=== PATIENT | female | born 1970 | race African-American/Black ===

== ENCOUNTER 2018-01-12 11:39 | Observation (INO) ==
[2018-01-12] MEDS ORDERED: ASPIRIN 325 MG TABLET PO STA (12:06)
[2018-01-12 12:20] LABS: Basophils % 0.1 % (0.0-0.8); Eosinophils % 0.1 % (0.00-10.9); Hematocrit 40.4 VOL% (35.7-47.0); Hemoglobin 12.6 GM/DL (12.0-16.0); Immature Granulocytes % 0.6 %; Immature Granulocytes Absolute 0.05 #; Lymphocytes # 2.5 10*3/uL (1.4-4.0); Lymphocytes % 28.3 % (21.3-54.2); Mean Corpuscular HGB Conc 31.2 GM/DL (32-36); Mean Corpuscular Hemoglobin 26 PG (27-34); Mean Corpuscular Volume 82.4 FL (87-102); Mean Platelet Volume 10.3 FL (9.6-12.0); Monocytes # 0.5 10*3/uL (0.11-0.8); Monocytes % 5.9 % (1.7-12.7); Neutrophils # 5.8 10*3/uL (1.4-7.4); Platelet Count 277 T/CUMM (130-400); Red Cell Distribution Width 13.8 % (9.3-17.3); White Blood Count 8.9 T/CUMM (4-12)
[2018-01-12 12:30] LABS: INR 0.9; PT Patient Result 9.7 SECS; Partial Thromboplastin Time 29.6 SECS (0-40)
[2018-01-12 12:35] LABS: Albumin 3.3 G/DL (3.4-5.0); Bilirubin,Total 0.4 MG/DL (0.2-1.0); Calcium 8.8 MG/DL (8.5-10.1); Osmolality,Calculated 289.5 MOS/KG (273-304); Potassium 3.8 MMOL/L (3.5-5.1); Total Protein 6.7 G/DL (6.4-8.3)
[2018-01-12 12:36] LABS: Barbiturates Screen,Urine Negative (Negative); Benzodiazepines Screen,Urine Negative (Negative); Cannabinoid Screen,Urine Negative (Negative); Opiate Screen,Urine Positive (Negative); Phencyclidine Screen,Urine Negative (Negative)
[2018-01-12 12:40] LABS: Apearance,Urine Slightly Hazy (Clear); Bilirubin,Urine Negative (Negative); Blood, Urine Negative (Negative); Glucose,Urine (UA) >=500 mg/dL (Negative); Ketones,Urine Negative (Negative); Mucus,Urine Occasional /LPF (Occasional); Nitrite,Urine Positive (Negative); Protein,Urine Negative; RBC,Urine 10 /HPF (0-4); Squamous Epithelial Cell,Urine Occasional /HPF (0-10); Urine Color Yellow (Yellow); Urine Specific Gravity 1.025 (1.001-1.035); WBC,Urine 35 /HPF (0-6)
[2018-01-12] MEDS ORDERED: cloNIDine 0.1 MG TABLET PO STA (13:30)
[2018-01-12] MEDS ORDERED: cloNIDine 0.1 MG TABLET ONE ×2 (13:41→13:44)
[2018-01-12] MEDS ORDERED: NITROGLYCERIN SL 0.4 MG TABLET SL STA (15:44)
[2018-01-12] MEDS ORDERED: cefTRIAXone 1,000 MG in SODIUM CHLORIDE 0.9% 100 ML IV STA (15:56)
[2018-01-12] MEDS ORDERED: MAGNESIUM SULF RIDER 4 GM in PREMIX 1 EACH IV PRN (16:03)
[2018-01-12] MEDS ORDERED: ONDANSETRON 4 MG/2 ML VIAL IV PRN (16:03)
[2018-01-12] MEDS ORDERED: MAGNESIUM HYDROXIDE SUSP 30 ML UDCUP PO PRN (16:03)
[2018-01-12] MEDS ORDERED: MORPHINE 4 MG/1 ML VIAL IV PRN (16:03)
[2018-01-12] MEDS ORDERED: MAGNESIUM SULF RIDER 2 GM in PREMIX 1 EACH IV PRN (16:03)
[2018-01-12] MEDS ORDERED: ALUM/MAG/SIMETH/LIDO VISC 1:1 30 ML BOTTLE PO PRN (16:03)
[2018-01-12] MEDS ORDERED: ACETAMINOPHEN 325 MG TABLET PO PRN (16:03)
[2018-01-12] MEDS ORDERED: POTASSIUM CHLORIDE 20 MEQ TABLET PO PRN (16:03)
[2018-01-12] MEDS ORDERED: INSULIN REGULAR 100 UNIT/ML SUBCUT ONE (16:03)
[2018-01-12] MEDS ORDERED: BISACODYL 5 MG TABLET PO PRN (16:03)
[2018-01-12 16:28] LABS: Troponin I < 0.015 NG/ML (0.00-0.045)
[2018-01-12 16:37] LABS: VLDL CHOLESTEROL 12.8 MG/DL
[2018-01-12] MEDS ORDERED: DEXTROSE 50% 25 GM/50 ML VIAL IV PRN (16:51)
[2018-01-12] MEDS ORDERED: GLUCAGON 1 MG VIAL IM PRN (16:51)
[2018-01-12] MEDS ORDERED: hydrALAZINE 20 MG/1 ML VIAL IV PRN (16:52)
[2018-01-12 17:20] LABS: Hepatitis A Ab IgM Quant 0.11 Index; Hepatitis A Ab IgM Result Negative (Negative); Hepatitis B Core IgM Quant < 0.05 Index; Hepatitis B Core IgM Result Negative (Negative); Hepatitis B Surface Ag Quant < 0.10 Index; Hepatitis B Surface Ag Result Negative (Negative); Hepatitis C Virus Ab Quant 0.13 Index; Hepatitis C Virus Ab Result Negative (Negative)
[2018-01-12] MEDS: LEVOFLOXACIN INJ 500 MG in PREMIX 1 EACH IV SCH (18:42)
[2018-01-12] MEDS: INSULIN REGULAR 100 UNIT/ML SUBCUT SCH (20:25)
[2018-01-12] MEDS: ATORVASTATIN 10 MG TABLET PO SCH (20:26)
[2018-01-12] MEDS ORDERED: INSULIN GLARGINE 100 UNIT/ML SUBCUT SCH (21:00)
[2018-01-12] MEDS ORDERED: INSULIN DETEMIR 100 UNIT/ML SUBCUT SCH (21:00)
[2018-01-13 04:12] LABS: Basophils % 0.1 % (0.0-0.8); Eosinophils % 0.1 % (0.00-10.9); Hematocrit 37.4 VOL% (35.7-47.0); Hemoglobin 11.9 GM/DL (12.0-16.0); Immature Granulocytes % 0.9 %; Immature Granulocytes Absolute 0.07 #; Lymphocytes # 2.5 10*3/uL (1.4-4.0); Lymphocytes % 30.2 % (21.3-54.2); Mean Corpuscular HGB Conc 31.8 GM/DL (32-36); Mean Corpuscular Hemoglobin 26 PG (27-34); Mean Corpuscular Volume 82.2 FL (87-102); Mean Platelet Volume 10.1 FL (9.6-12.0); Monocytes # 0.5 10*3/uL (0.11-0.8); Monocytes % 5.5 % (1.7-12.7); Neutrophils # 5.1 10*3/uL (1.4-7.4); Neutrophils % 63.2 % (38.7-73.9); Platelet Count 242 T/CUMM (130-400); Red Blood Count 4.55 MC/CUMM (3.8-5.5); White Blood Count 8.1 T/CUMM (4-12)
[2018-01-13 04:39] LABS: Alanine Aminotransferase 161 U/L (13-56); Albumin 2.6 G/DL (3.4-5.0); Alkaline Phosphatase 230 U/L (45-117); Aspartate Amino Transferase 169 U/L (0-37); Bilirubin,Total < 0.39 MG/DL (0.2-1.0); Blood Urea Nitrogen 9 MG/DL (7-18); Calcium 8.2 MG/DL (8.5-10.1); Glucose 311 MG/DL (74-106); Osmolality,Calculated 287.5 MOS/KG (273-304); Potassium 3.4 MMOL/L (3.5-5.1); Sodium 139 MMOL/L (136-145); Total Protein 6.1 G/DL (6.4-8.3)
[2018-01-13 04:52] LABS: Albumin 2.7 G/DL (3.4-5.0); Bilirubin,Direct 0.11 MG/DL (0.0-0.20); Bilirubin,Indirect 0.6 MG/DL (0.0-1.0); Bilirubin,Total 0.7 MG/DL (0.2-1.0); Total Protein 6.1 G/DL (6.4-8.3)
[2018-01-13] MEDS ORDERED: INSULIN NPH 100 UNIT/ML SUBCUT SCH (07:30)
[2018-01-13] MEDS ORDERED: POTASSIUM CHLORIDE 20 MEQ TABLET PO ONE (09:24)
[2018-01-13] MEDS: ASPIRIN EC 81 MG TABLET PO SCH (10:00)
[2018-01-13] MEDS: PANTOPRAZOLE 40 MG TABLET PO SCH (10:00)
[2018-01-13] MEDS: INSULIN GLARGINE 100 UNIT/ML SUBCUT SCH ×2 (10:01→21:05)
[2018-01-13] MEDS: INSULIN REGULAR 100 UNIT/ML SUBCUT SCH ×4 (10:01→21:05)
[2018-01-13] MEDS: KETOROLAC 30 MG/1 ML VIAL IV SCH ×3 (11:33→22:30)
[2018-01-13] MEDS: INSULIN LISPRO 100 UNIT/ML SUBCUT SCH ×3 (12:43→21:04)
[2018-01-13] MEDS: LEVOFLOXACIN INJ 500 MG in PREMIX 1 EACH IV SCH (17:52)
[2018-01-13] MEDS: ATORVASTATIN 10 MG TABLET PO SCH (21:05)
[2018-01-14] MEDS: KETOROLAC 30 MG/1 ML VIAL IV SCH (04:53)
[2018-01-14] MEDS: INSULIN LISPRO 100 UNIT/ML SUBCUT SCH ×4 (08:23→22:17)
[2018-01-14] MEDS: INSULIN REGULAR 100 UNIT/ML SUBCUT SCH ×4 (08:24→22:18)
[2018-01-14] MEDS: PANTOPRAZOLE 40 MG TABLET PO SCH (09:44)
[2018-01-14] MEDS: LISINOPRIL 10 MG TABLET PO SCH (09:44)
[2018-01-14] MEDS: POTASSIUM CHLORIDE 20 MEQ TABLET PO SCH (09:44)
[2018-01-14] MEDS: ASPIRIN EC 81 MG TABLET PO SCH (09:44)
[2018-01-14] MEDS: INSULIN GLARGINE 100 UNIT/ML SUBCUT SCH (11:28)
[2018-01-14] MEDS: metFORMIN 500 MG TABLET PO SCH (17:09)
[2018-01-14] MEDS: LEVOFLOXACIN INJ 500 MG in PREMIX 1 EACH IV SCH (17:09)
[2018-01-14] MEDS: INSULIN ASPART PROTAMINE/ASPART 70/30 100 UNIT/ML SUBCUT SCH (22:17)
[2018-01-15 04:52] LABS: Basophils % 0.1 % (0.0-0.8); Eosinophils % 0.1 % (0.00-10.9); Hematocrit 37.2 VOL% (35.7-47.0); Hemoglobin 11.6 GM/DL (12.0-16.0); Immature Granulocytes % 0.9 %; Immature Granulocytes Absolute 0.09 #; Lymphocytes # 2.4 10*3/uL (1.4-4.0); Mean Corpuscular HGB Conc 31.2 GM/DL (32-36); Mean Corpuscular Hemoglobin 26 PG (27-34); Mean Corpuscular Volume 83.6 FL (87-102); Mean Platelet Volume 9.7 FL (9.6-12.0); Monocytes # 0.6 10*3/uL (0.11-0.8); Monocytes % 5.5 % (1.7-12.7); Neutrophils % 69.4 % (38.7-73.9); Platelet Count 252 T/CUMM (130-400); Red Blood Count 4.45 MC/CUMM (3.8-5.5); Red Cell Distribution Width 14.2 % (9.3-17.3); White Blood Count 10.1 T/CUMM (4-12)
[2018-01-15 05:23] LABS: Calcium 8.7 MG/DL (8.5-10.1); Osmolality,Calculated 288.8 MOS/KG (273-304); Potassium 3.9 MMOL/L (3.5-5.1)
[2018-01-15 05:26] LABS: Alanine Aminotransferase 85 U/L (13-56); Albumin 2.6 G/DL (3.4-5.0); Alkaline Phosphatase 200 U/L (45-117); Aspartate Amino Transferase 33 U/L (0-37); Bilirubin,Direct < 0.100 MG/DL (0.0-0.20); Bilirubin,Indirect 0.3 MG/DL (0.0-1.0); Bilirubin,Total < 0.39 MG/DL (0.2-1.0); Total Protein 5.9 G/DL (6.4-8.3)
[2018-01-15] MEDS: INSULIN LISPRO 100 UNIT/ML SUBCUT SCH ×4 (08:07→21:11)
[2018-01-15] MEDS: INSULIN REGULAR 100 UNIT/ML SUBCUT SCH ×4 (08:07→21:12)
[2018-01-15] MEDS: metFORMIN 500 MG TABLET PO SCH ×3 (08:08→16:27)
[2018-01-15] MEDS ORDERED: DEXTROSE 50% 25 GM/50 ML VIAL IV PRN (08:52)
[2018-01-15] MEDS ORDERED: GLUCAGON 1 MG VIAL IM PRN (08:52)
[2018-01-15] MEDS: ASPIRIN EC 81 MG TABLET PO SCH (09:08)
[2018-01-15] MEDS: TRIAMTERENE/HCTZ 37.5-25 MG TABLET PO SCH (09:08)
[2018-01-15] MEDS: PANTOPRAZOLE 40 MG TABLET PO SCH (09:08)
[2018-01-15] MEDS: LISINOPRIL 10 MG TABLET PO SCH (09:08)
[2018-01-15] MEDS: POTASSIUM CHLORIDE 20 MEQ TABLET PO SCH (09:08)
[2018-01-15] MEDS: INSULIN ASPART PROTAMINE/ASPART 70/30 100 UNIT/ML SUBCUT SCH ×2 (09:12→21:12)
[2018-01-15] MEDS: LEVOFLOXACIN INJ 500 MG in PREMIX 1 EACH IV SCH (17:26)
[2018-01-16 05:35] LABS: Basophils % 0.1 % (0.0-0.8); Eosinophils % 0.1 % (0.00-10.9); Hematocrit 39.1 VOL% (35.7-47.0); Hemoglobin 12.1 GM/DL (12.0-16.0); Immature Granulocytes % 0.8 %; Immature Granulocytes Absolute 0.09 #; Lymphocytes # 2.8 10*3/uL (1.4-4.0); Lymphocytes % 25.7 % (21.3-54.2); Mean Corpuscular HGB Conc 30.9 GM/DL (32-36); Mean Corpuscular Hemoglobin 26 PG (27-34); Mean Corpuscular Volume 83.5 FL (87-102); Mean Platelet Volume 10.5 FL (9.6-12.0); Monocytes # 0.6 10*3/uL (0.11-0.8); Monocytes % 5.6 % (1.7-12.7); Neutrophils # 7.3 10*3/uL (1.4-7.4); Neutrophils % 67.7 % (38.7-73.9); Platelet Count 274 T/CUMM (130-400); Red Blood Count 4.68 MC/CUMM (3.8-5.5); Red Cell Distribution Width 14.3 % (9.3-17.3); White Blood Count 10.7 T/CUMM (4-12)
[2018-01-16 06:07] LABS: Alanine Aminotransferase 64 U/L (13-56); Albumin 2.8 G/DL (3.4-5.0); Alkaline Phosphatase 183 U/L (45-117); Aspartate Amino Transferase 17 U/L (0-37); Bilirubin,Direct < 0.100 MG/DL (0.0-0.20); Bilirubin,Indirect 0.3 MG/DL (0.0-1.0); Bilirubin,Total < 0.39 MG/DL (0.2-1.0); Blood Urea Nitrogen 17 MG/DL (7-18); Calcium 9.1 MG/DL (8.5-10.1); Glucose 192 MG/DL (74-106); Osmolality,Calculated 281.7 MOS/KG (273-304); Potassium 4.5 MMOL/L (3.5-5.1); Sodium 138 MMOL/L (136-145); Total Protein 6.3 G/DL (6.4-8.3)
[2018-01-16] MEDS: INSULIN LISPRO 100 UNIT/ML SUBCUT SCH ×2 (09:43→12:42)
[2018-01-16] MEDS: POTASSIUM CHLORIDE 20 MEQ TABLET PO SCH (09:43)
[2018-01-16] MEDS: metFORMIN 500 MG TABLET PO SCH (09:43)
[2018-01-16] MEDS: LISINOPRIL 10 MG TABLET PO SCH (09:43)
[2018-01-16] MEDS: PANTOPRAZOLE 40 MG TABLET PO SCH (09:43)
[2018-01-16] MEDS: TRIAMTERENE/HCTZ 37.5-25 MG TABLET PO SCH (09:44)
[2018-01-16] MEDS: ASPIRIN EC 81 MG TABLET PO SCH (09:44)
[2018-01-16] MEDS: INSULIN REGULAR 100 UNIT/ML SUBCUT SCH ×2 (09:44→12:42)
[2018-01-16] MEDS: INSULIN ASPART PROTAMINE/ASPART 70/30 100 UNIT/ML SUBCUT SCH (09:49)
[2018-01-16] MEDS: LEVOFLOXACIN INJ 500 MG in PREMIX 1 EACH IV SCH (10:19)
[2018-01-16 12:21] VITALS: BP 164/100
[2018-01-16] MEDS ORDERED: cloNIDine 0.1 MG TABLET PO ONE ×2 (12:23→13:37)
[2018-01-17 15:20] LABS: Smooth Muscle Antibody Negative (Negative)
== END 2018-01-16 15:23 | disposition home or self-care (01) ==
LOC: EDUNIT# → EDSEX → EDBD → N.ED 11:39 → N.EDINP 11:39 → SUATTDRO 16:03 → N.EDINP 17:54 → N.TELES 17:56
PROVIDERS: ADMIT Internal Medicine

== ENCOUNTER 2018-11-07 20:53 | Observation (INO) ==
[2018-11-07] MEDS ORDERED: ONDANSETRON 4 MG/2 ML VIAL IV STA ×2 (21:10→23:13)
[2018-11-07] MEDS ORDERED: SODIUM CHLORIDE 0.9% 1,000 ML IV STA (21:10)
[2018-11-07 21:28] LABS: Basophils # 0.1 10*3/uL (0.0-0.2); Basophils % 0.3 % (0.0-0.8); Hematocrit 45.4 VOL% (35.7-47.0); Hemoglobin 14.3 GM/DL (12.0-16.0); Immature Granulocytes % 0.9 %; Immature Granulocytes Absolute 0.16 #; Lymphocytes # 1.2 10*3/uL (1.4-4.0); Lymphocytes % 6.4 % (21.3-54.2); Mean Corpuscular HGB Conc 31.5 GM/DL (32-36); Mean Corpuscular Volume 82.8 FL (87-102); Mean Platelet Volume 9.5 FL (9.6-12.0); Monocytes % 1.1 % (1.7-12.7); Neutrophils % 91.3 % (38.7-73.9); Platelet Count 340 T/CUMM (130-400); Red Blood Count 5.48 MC/CUMM (3.8-5.5); Red Cell Distribution Width 13.2 % (9.3-17.3); White Blood Count 18.6 T/CUMM (4-12)
[2018-11-07 21:50] LABS: Eosinophils 1 % (0-10); Lymphocytes 9 % (20-55); Platelet Estimate Normal; Segmented Neutrophils 90 % (50-85); Total Cells Counted 100
[2018-11-07] MEDS ORDERED: MORPHINE 4 MG/1 ML VIAL IV STA (21:52)
[2018-11-07 21:59] LABS: Alanine Aminotransferase 251 U/L (13-56); Albumin 3.8 G/DL (3.4-5.0); Alkaline Phosphatase 424 U/L (45-117); Amylase 52 U/L (25-115); Aspartate Amino Transferase 182 U/L (0-37); Blood Urea Nitrogen 19 MG/DL (7-18); Calcium 9.7 MG/DL (8.5-10.1); Glucose 302 MG/DL (74-106); Osmolality,Calculated 285.8 MOS/KG (273-304); Total Protein 8.5 G/DL (6.4-8.3)
[2018-11-07] MEDS ORDERED: hydrALAZINE 20 MG/1 ML VIAL IV STA (23:31)
[2018-11-07 23:35] LABS: Apearance,Urine Slightly Hazy (Clear); Bilirubin,Urine Negative (Negative); Blood, Urine Negative (Negative); Glucose,Urine (UA) >=500 mg/dL (Negative); Ketones,Urine 20 mg/dL (Negative); Nitrite,Urine Negative (Negative); Protein,Urine Negative; RBC,Urine 19 /HPF (0-4); Renal Epithelial Cells,Urine Occasional /HPF (<1); Squamous Epithelial Cell,Urine Few /HPF (0-10); Urine Color Yellow (Yellow); Urine Specific Gravity 1.056 (1.001-1.035); Urine Urobilinogen < 2.0 EU/DL (0.2-1.0); WBC,Urine 10 /HPF (0-6)
[2018-11-07] MEDS ORDERED: cefTRIAXone 1,000 MG in SODIUM CHLORIDE 0.9% 100 ML IV STA (23:42)
[2018-11-08] MEDS ORDERED: PROMETHAZINE INJ 12.5 MG in SODIUM CHLORIDE 0.9% 50 ML IV STA (00:04)
[2018-11-08] MEDS ORDERED: HYDROmorphone 2 MG/1 ML VIAL IV STA (00:04)
[2018-11-08] MEDS ORDERED: PROMETHAZINE 25 MG/1 ML VIAL ONE (00:07)
[2018-11-08] MEDS ORDERED: ACETAMINOPHEN 325 MG TABLET PO PRN (00:51)
[2018-11-08 02:21] LABS: Alanine Aminotransferase 250 U/L (13-56); Albumin 3.8 G/DL (3.4-5.0); Alkaline Phosphatase 415 U/L (45-117); Aspartate Amino Transferase 196 U/L (0-37); Bilirubin,Direct < 0.100 MG/DL (0.0-0.20); Bilirubin,Indirect 0.4 MG/DL (0.0-1.0); Total Protein 9.3 G/DL (6.4-8.3)
[2018-11-08 02:24] LABS: Risk Ratio 4.02; VLDL CHOLESTEROL 21.8 MG/DL
[2018-11-08] MEDS: SODIUM CHLORIDE 0.9% 1,000 ML IV SCH ×3 (02:35→23:01)
[2018-11-08] MEDS ORDERED: GLUCAGON 1 MG VIAL IM PRN (03:22)
[2018-11-08] MEDS ORDERED: DEXTROSE 50% 25 GM/50 ML VIAL IV PRN (03:22)
[2018-11-08] MEDS: INSULIN REGULAR 100 UNIT/ML SUBCUT SCH ×3 (05:56→17:32)
[2018-11-08] MEDS: ONDANSETRON 4 MG/2 ML VIAL IV PRN ×4 (05:57→19:30)
[2018-11-08] MEDS: MORPHINE 4 MG/1 ML VIAL IV PRN ×2 (05:57→10:00)
[2018-11-08 07:21] LABS: Basophils % 0.2 % (0.0-0.8); Hematocrit 43.1 VOL% (35.7-47.0); Hemoglobin 13.7 GM/DL (12.0-16.0); Immature Granulocytes % 1.6 %; Immature Granulocytes Absolute 0.28 #; Lymphocytes # 1.3 10*3/uL (1.4-4.0); Lymphocytes % 7.5 % (21.3-54.2); Mean Corpuscular HGB Conc 31.8 GM/DL (32-36); Mean Corpuscular Volume 83.4 FL (87-102); Mean Platelet Volume 10.2 FL (9.6-12.0); Monocytes % 1.7 % (1.7-12.7); Platelet Count 348 T/CUMM (130-400); Red Blood Count 5.17 MC/CUMM (3.8-5.5); Red Cell Distribution Width 13.6 % (9.3-17.3); White Blood Count 17.2 T/CUMM (4-12)
[2018-11-08] MEDS: INSULIN GLARGINE 100 UNIT/ML SUBCUT SCH (08:07)
[2018-11-08] MEDS: LEVOFLOXACIN INJ 500 MG in PREMIX 1 EACH IV SCH (08:07)
[2018-11-08] MEDS: PANTOPRAZOLE 40 MG TABLET PO SCH (08:11)
[2018-11-08 08:50] LABS: Hepatitis B Core IgM Quant 0.05 Index; Hepatitis B Surface Ag Quant < 0.10 Index; Hepatitis B Surface Ag Result Negative (Negative); Hepatitis C Virus Ab Quant 0.02 Index; Hepatitis C Virus Ab Result Negative (Negative)
[2018-11-08 09:06] LABS: Albumin 3.2 G/DL (3.4-5.0); Bilirubin,Total 0.4 MG/DL (0.2-1.0); Calcium 9.1 MG/DL (8.5-10.1); Osmolality,Calculated 283.8 MOS/KG (273-304); Total Protein 8.1 G/DL (6.4-8.3)
[2018-11-08] MEDS ORDERED: cefTRIAXone 1,000 MG in SYRINGE 1 EACH IV SCH (12:00)
[2018-11-08] MEDS ORDERED: ENOXAPARIN 40 MG/0.4 ML SYRINGE SUBCUT SCH (15:00)
[2018-11-08] MEDS: IBUPROFEN 800 MG TABLET PO SCH ×2 (15:11→21:03)
[2018-11-08 15:47] LABS: Alanine Aminotransferase 149 U/L (13-56); Albumin 2.9 G/DL (3.4-5.0); Alkaline Phosphatase 318 U/L (45-117); Aspartate Amino Transferase 54 U/L (0-37); Bilirubin,Total < 0.39 MG/DL (0.2-1.0); Blood Urea Nitrogen 18 MG/DL (7-18); Glucose 203 MG/DL (74-106); Total Protein 7.8 G/DL (6.4-8.3)
[2018-11-08] MEDS ORDERED: PROMETHAZINE 25 MG/1 ML VIAL IM PRN (21:25)
[2018-11-09] MEDS: INSULIN REGULAR 100 UNIT/ML SUBCUT SCH ×2 (00:36→06:18)
[2018-11-09] MEDS: SODIUM CHLORIDE 0.9% 1,000 ML IV SCH ×2 (02:06→06:20)
[2018-11-09 05:35] LABS: Basophils % 0.3 % (0.0-0.8); Hematocrit 42.7 VOL% (35.7-47.0); Hemoglobin 13.5 GM/DL (12.0-16.0); Immature Granulocytes % 1.8 %; Immature Granulocytes Absolute 0.27 #; Lymphocytes % 13.1 % (21.3-54.2); Mean Corpuscular HGB Conc 31.6 GM/DL (32-36); Mean Corpuscular Volume 84.1 FL (87-102); Mean Platelet Volume 9.9 FL (9.6-12.0); Monocytes % 3.3 % (1.7-12.7); Neutrophils % 81.5 % (38.7-73.9); Platelet Count 319 T/CUMM (130-400); Red Blood Count 5.08 MC/CUMM (3.8-5.5); Red Cell Distribution Width 13.4 % (9.3-17.3)
[2018-11-09 06:12] LABS: Bilirubin,Total 0.6 MG/DL (0.2-1.0); Calcium 8.7 MG/DL (8.5-10.1); Osmolality,Calculated 280.7 MOS/KG (273-304); Total Protein 7.4 G/DL (6.4-8.3)
[2018-11-09 07:31] VITALS: BP 159/91
[2018-11-09] MEDS: INSULIN GLARGINE 100 UNIT/ML SUBCUT SCH (08:09)
[2018-11-09] MEDS: LEVOFLOXACIN INJ 500 MG in PREMIX 1 EACH IV SCH (08:09)
[2018-11-09] MEDS: PANTOPRAZOLE 40 MG TABLET PO SCH (08:10)
[2018-11-09] MEDS: IBUPROFEN 800 MG TABLET PO SCH (08:10)
[2018-11-09] MEDS: ONDANSETRON 4 MG/2 ML VIAL IV PRN (08:16)
== END 2018-11-09 11:17 | disposition home or self-care (01) ==
LOC: EDUNIT# → EDBD → N.ED 20:53 → N.EDINP 20:53 → SUATTDRO 11-08 00:51 → N.2E 11-08 01:12 → N.5E 11-08 01:26
PROVIDERS: ADMIT Internal Medicine; ATTEND Family Medicine

== ENCOUNTER 2019-09-26 20:31 | Observation (INO) ==
[2019-09-26 20:51] LABS: Basophils % 0.2 % (0.0-0.8); Hematocrit 42.8 VOL% (35.7-47.0); Hemoglobin 13.2 GM/DL (12.0-16.0); Immature Granulocytes % 0.9 %; Immature Granulocytes Absolute 0.11 #; Lymphocytes # 2.7 10*3/uL (1.4-4.0); Lymphocytes % 21.7 % (21.3-54.2); Mean Corpuscular HGB Conc 30.8 GM/DL (32-36); Mean Corpuscular Volume 83.8 FL (87-102); Mean Platelet Volume 9.9 FL (9.6-12.0); Monocytes % 4.4 % (1.7-12.7); Neutrophils % 72.8 % (38.7-73.9); Platelet Count 272 T/CUMM (130-400); Red Blood Count 5.11 MC/CUMM (3.8-5.5); Red Cell Distribution Width 14.8 % (9.3-17.3); White Blood Count 12.6 T/CUMM (4-12)
[2019-09-26] MEDS ORDERED: METOCLOPRAMIDE 10 MG/2 ML VIAL IV STA (20:54)
[2019-09-26] MEDS ORDERED: ONDANSETRON 4 MG/2 ML VIAL IV STA ×2 (20:54→22:24)
[2019-09-26] MEDS ORDERED: MEPERIDINE 25 MG/1 ML VIAL IV STA (20:54)
[2019-09-26] MEDS ORDERED: SODIUM CHLORIDE 0.9% 1,000 ML IV STA (20:54)
[2019-09-26 21:24] LABS: Albumin 3.5 G/DL (3.4-5.0); Bilirubin,Total 0.5 MG/DL (0.2-1.0); Calcium 9.1 MG/DL (8.5-10.1); Total Protein 7.5 G/DL (6.4-8.3)
[2019-09-26 21:43] LABS: Amylase 45 U/L (25-115); Ferritin 334.2 ng/ml (8-252); Troponin I < 0.015 NG/ML (0.00-0.045)
[2019-09-26 22:34] LABS: Apearance,Urine Slightly Hazy (Clear); Bacteria,Urine Occasional /HPF (Few); Bilirubin,Urine Negative (Negative); Blood, Urine Negative (Negative); Glucose,Urine (UA) >=500 mg/dL (Negative); Hyaline Casts,Urine 1 /LPF (0-3); Ketones,Urine 20 mg/dL (Negative); Mucus,Urine Occasional /LPF (Occasional); Nitrite,Urine Negative (Negative); Protein,Urine Negative; RBC,Urine 4 /HPF (0-4); Squamous Epithelial Cell,Urine Few /HPF (0-10); Urine Color Yellow (Yellow); Urine Specific Gravity 1.017 (1.001-1.035); WBC,Urine 4 /HPF (0-6)
[2019-09-27] MEDS ORDERED: ACETAMINOPHEN 325 MG TABLET PO PRN (00:29)
[2019-09-27] MEDS ORDERED: diphenhydrAMINE CAP 25 MG CAPSULE PO PRN (00:29)
[2019-09-27] MEDS ORDERED: ZALEPLON 5 MG CAPSULE PO PRN (00:29)
[2019-09-27] MEDS ORDERED: hydrALAZINE 20 MG/1 ML VIAL IV PRN (00:29)
[2019-09-27] MEDS ORDERED: GLUCAGON 1 MG VIAL IM PRN ×2 (00:29)
[2019-09-27] MEDS ORDERED: NICOTINE 21 MG/24 HR PATCH TRANSDERM PRN (00:29)
[2019-09-27] MEDS ORDERED: ALBUTEROL 2.5 MG/3 ML NEB RESP TX PRN (00:29)
[2019-09-27] MEDS ORDERED: DOCUSATE SODIUM 100 MG CAPSULE PO PRN (00:29)
[2019-09-27] MEDS ORDERED: DEXTROSE 50% 25 GM/50 ML VIAL IV PRN ×2 (00:29)
[2019-09-27] MEDS ORDERED: PROMETHAZINE 25 MG/1 ML VIAL IM PRN (00:29)
[2019-09-27] MEDS ORDERED: guaiFENesin/DM ER 600-30 MG TABLET PO PRN (00:29)
[2019-09-27] MEDS ORDERED: SODIUM CHLORIDE 0.9% 1,000 ML IV SCH (00:30)
[2019-09-27] MEDS ORDERED: SODIUM CHLORIDE 0.9% 1,000 ML IV ONE (00:53)
[2019-09-27] MEDS ORDERED: POTASSIUM CHLORIDE 20 MEQ TABLET PO SCH (01:30)
[2019-09-27] MEDS ORDERED: cefTRIAXone 1,000 MG in SYRINGE 1 EACH IV SCH (01:30)
[2019-09-27] MEDS: INSULIN LISPRO 100 UNIT/ML SUBCUT SCH ×2 (02:56→06:11)
[2019-09-27] MEDS: ONDANSETRON 4 MG/2 ML VIAL IV PRN ×2 (02:58→07:20)
[2019-09-27 04:46] LABS: Basophils % 0.1 % (0.0-0.8); Hematocrit 42.6 VOL% (35.7-47.0); Immature Granulocytes % 1.2 %; Immature Granulocytes Absolute 0.17 #; Lymphocytes % 6.9 % (21.3-54.2); Mean Corpuscular HGB Conc 30.5 GM/DL (32-36); Mean Corpuscular Volume 85.5 FL (87-102); Mean Platelet Volume 9.8 FL (9.6-12.0); Monocytes % 1.2 % (1.7-12.7); Neutrophils % 90.6 % (38.7-73.9); Platelet Count 281 T/CUMM (130-400); Red Blood Count 4.98 MC/CUMM (3.8-5.5); Red Cell Distribution Width 14.7 % (9.3-17.3); White Blood Count 14.1 T/CUMM (4-12)
[2019-09-27 05:07] LABS: Albumin 3.3 G/DL (3.4-5.0); Bilirubin,Total 0.4 MG/DL (0.2-1.0); Calcium 9.3 MG/DL (8.5-10.1); Risk Ratio 3.75; Total Protein 7.7 G/DL (6.4-8.3); VLDL CHOLESTEROL 15.2 MG/DL
[2019-09-27 05:16] LABS: Hypochromasia Slight; Lymphocytes 5 % (20-55); Platelet Estimate Adequate; Segmented Neutrophils 92 % (50-85); Total Cells Counted 100
[2019-09-27 05:58] LABS: Hepatitis B Core IgM Quant 0.31 Index; Hepatitis B Surface Ag Quant 0.12 Index; Hepatitis B Surface Ag Result Negative (Negative); Hepatitis C Virus Ab Quant 0.09 Index; Hepatitis C Virus Ab Result Negative (Negative)
[2019-09-27] MEDS ORDERED: PROMETHAZINE INJ 25 MG in SODIUM CHLORIDE 0.9% 50 ML IV PRN (07:03)
[2019-09-27] MEDS ORDERED: SCOPOLAMINE 1.5 MG PATCH TRANSDERM ONE (07:04)
[2019-09-27 07:46] VITALS: BP 140/70
[2019-09-27] MEDS ORDERED: carvediloL 3.125 MG TABLET PO SCH (09:00)
[2019-09-27] MEDS ORDERED: ENOXAPARIN 40 MG/0.4 ML SYRINGE SUBCUT SCH (09:00)
[2019-09-27] MEDS ORDERED: ATORVASTATIN 40 MG TABLET PO SCH (09:00)
[2019-09-27] MEDS ORDERED: ASPIRIN EC 81 MG TABLET PO SCH (09:00)
[2019-09-27] MEDS ORDERED: amLODIPine 5 MG TABLET PO SCH (09:00)
[2019-09-27] MEDS ORDERED: PANTOPRAZOLE 40 MG TABLET PO SCH (09:00)
== END 2019-09-27 08:13 | disposition left against medical advice (07) ==
LOC: EDUNIT# → EDBD → N.EDINP 20:31 → N.ED 20:31 → N.TELES 09-27 01:00
PROVIDERS: ADMIT Hospitalist; ATTEND Hospitalist

== ENCOUNTER 2020-01-08 20:06 | Observation (INO) ==
[2020-01-08] MEDS ORDERED: SODIUM CHLORIDE 0.9% 500 ML IV STA ×2 (21:04→22:59)
[2020-01-08 21:56] LABS: Basophils % 0.2 % (0.0-0.8); Eosinophils % 0.1 % (0.00-10.9); Hematocrit 37.2 VOL% (35.7-47.0); Hemoglobin 11.5 GM/DL (12.0-16.0); Immature Granulocytes % 0.5 %; Immature Granulocytes Absolute 0.04 #; Lymphocytes # 2.7 10*3/uL (1.4-4.0); Lymphocytes % 32.1 % (21.3-54.2); Mean Corpuscular HGB Conc 30.9 GM/DL (32-36); Mean Corpuscular Volume 84.5 FL (87-102); Mean Platelet Volume 10.1 FL (9.6-12.0); Monocytes % 4.7 % (1.7-12.7); Neutrophils % 62.4 % (38.7-73.9); Platelet Count 241 T/CUMM (130-400); Red Cell Distribution Width 13.4 % (9.3-17.3); White Blood Count 8.3 T/CUMM (4-12)
[2020-01-08 22:18] LABS: Bilirubin,Urine Negative (Negative); Blood, Urine Small mg/dL (Negative); Glucose,Urine (UA) >=500 mg/dL (Negative); Ketones,Urine Negative (Negative); Mucus,Urine Occasional /LPF (Occasional); Nitrite,Urine Negative (Negative); Protein,Urine Negative; RBC,Urine 29 /HPF (0-4); Squamous Epithelial Cell,Urine Few /HPF (0-10); Urine Appearance CLOUDY (Clear); Urine Color Yellow (Yellow); Urine Specific Gravity 1.018 (1.001-1.035); Urine Urobilinogen < 2.0 EU/DL (0.2-1.0); WBC,Urine 30 /HPF (0-6)
[2020-01-08 22:31] LABS: Barbiturates Screen,Urine Negative (Negative); Benzodiazepines Screen,Urine Positive (Negative); Cannabinoid Screen,Urine Negative (Negative); Opiate Screen,Urine Positive (Negative); Phencyclidine Screen,Urine Negative (Negative)
[2020-01-08 22:36] LABS: Alanine Aminotransferase 79 U/L (13-56); Alkaline Phosphatase 195 U/L (45-117); Aspartate Amino Transferase 70 U/L (0-37); Blood Urea Nitrogen 32 MG/DL (7-18); Calcium 8.9 MG/DL (8.5-10.1); Estimated Glom Filtration Rate 58 ML/MIN; Glucose 283 MG/DL (74-106); Troponin I < 0.015 NG/ML (0.00-0.045)
[2020-01-08] MEDS ORDERED: cefTRIAXone 1,000 MG in SODIUM CHLORIDE 0.9% 100 ML IV STA (22:50)
[2020-01-09] MEDS ORDERED: GLUCAGON 1 MG VIAL IM PRN (00:41)
[2020-01-09] MEDS ORDERED: ONDANSETRON 4 MG/2 ML VIAL IV PRN (00:41)
[2020-01-09] MEDS ORDERED: DEXTROSE 50% 25 GM/50 ML VIAL IV PRN (00:41)
[2020-01-09] MEDS: SODIUM CHLORIDE 0.9% 1,000 ML IV SCH ×2 (02:13→17:27)
[2020-01-09] MEDS: ENOXAPARIN 40 MG/0.4 ML SYRINGE SUBCUT SCH (02:13)
[2020-01-09] MEDS: INSULIN REGULAR 100 UNIT/ML SUBCUT SCH ×4 (09:59→22:24)
[2020-01-09] MEDS: PANTOPRAZOLE 40 MG TABLET PO SCH (10:00)
[2020-01-09] MEDS: ACETAMINOPHEN 325 MG TABLET PO PRN (10:01)
[2020-01-09] MEDS ORDERED: cefTRIAXone 1,000 MG in SODIUM CHLORIDE 0.9% 100 ML IV SCH (21:00)
[2020-01-10] MEDS: ENOXAPARIN 40 MG/0.4 ML SYRINGE SUBCUT SCH (02:32)
[2020-01-10 06:47] LABS: Basophils % 0.4 % (0.0-0.8); Eosinophils % 0.1 % (0.00-10.9); Hematocrit 33.9 VOL% (35.7-47.0); Hemoglobin 10.9 GM/DL (12.0-16.0); Immature Granulocytes % 0.6 %; Immature Granulocytes Absolute 0.04 #; Lymphocytes # 2.7 10*3/uL (1.4-4.0); Lymphocytes % 37.5 % (21.3-54.2); Mean Corpuscular HGB Conc 32.2 GM/DL (32-36); Mean Corpuscular Volume 84.5 FL (87-102); Mean Platelet Volume 10.1 FL (9.6-12.0); Monocytes % 6.4 % (1.7-12.7); Platelet Count 223 T/CUMM (130-400); Red Blood Count 4.01 MC/CUMM (3.8-5.5); Red Cell Distribution Width 13.4 % (9.3-17.3); White Blood Count 7.1 T/CUMM (4-12)
[2020-01-10 08:08] LABS: Albumin 2.9 G/DL (3.4-5.0); Bilirubin,Total 0.4 MG/DL (0.2-1.0); Calcium 8.9 MG/DL (8.5-10.1); Osmolality,Calculated 280.7 MOS/KG (273-304); Total Protein 6.5 G/DL (6.4-8.3)
[2020-01-10] MEDS: INSULIN REGULAR 100 UNIT/ML SUBCUT SCH ×2 (09:10→12:26)
[2020-01-10] MEDS: PANTOPRAZOLE 40 MG TABLET PO SCH (09:11)
[2020-01-10] MEDS: ACETAMINOPHEN 325 MG TABLET PO PRN (09:12)
[2020-01-10 12:15] VITALS: BP 137/89
[2020-01-10] MEDS ORDERED: traZODone 50 MG TABLET PO PRN (12:18)
[2020-01-10] MEDS ORDERED: QUEtiapine 25 MG TABLET PO PRN (12:18)
[2020-01-10] MEDS ORDERED: ARIPiprazole 5 MG TABLET PO SCH (12:30)
[2020-01-10] MEDS ORDERED: PARoxetine 20 MG TABLET PO SCH (12:30)
[2020-01-10] MEDS ORDERED: NON-FORMULARY MEDICATION (Metformin 1,000 mg Tablet) PO SCH (12:30)
[2020-01-10] MEDS ORDERED: lisinopriL 5 MG TABLET PO SCH (12:30)
[2020-01-10] MEDS ORDERED: GABAPENTIN 300 MG CAPSULE PO SCH (15:00)
[2020-01-10] MEDS ORDERED: INSULIN NPH/REGULAR 70/30 100 UNIT/ML SUBCUT SCH (16:30)
[2020-01-10] MEDS ORDERED: PRAZOSIN 1 MG CAPSULE PO SCH (21:00)
== END 2020-01-10 15:23 | disposition home or self-care (01) ==
LOC: EDUNIT# → EDBD → N.EDINP 20:06 → N.ED 20:06 → N.4E 01-09 02:49
PROVIDERS: ADMIT Internal Medicine; ATTEND Internal Medicine

== ENCOUNTER 2020-01-25 08:28 | Inpatient (IN) ==
[2020-01-25 09:14] LABS: Basophils % 0.4 % (0.0-0.8); Eosinophils # 0.2 10*3/uL (0.0-0.87); Eosinophils % 2.5 % (0.00-10.9); Hematocrit 39.9 VOL% (35.7-47.0); Hemoglobin 12.8 GM/DL (12.0-16.0); Immature Granulocytes % 0.6 %; Immature Granulocytes Absolute 0.04 #; Lymphocytes # 2.3 10*3/uL (1.4-4.0); Mean Corpuscular HGB Conc 32.1 GM/DL (32-36); Mean Corpuscular Volume 82.3 FL (87-102); Mean Platelet Volume 9.8 FL (9.6-12.0); Monocytes % 6.8 % (1.7-12.7); Neutrophils % 57.7 % (38.7-73.9); Platelet Count 284 T/CUMM (130-400); Red Blood Count 4.85 MC/CUMM (3.8-5.5); Red Cell Distribution Width 13.4 % (9.3-17.3); White Blood Count 7.1 T/CUMM (4-12)
[2020-01-25 09:36] LABS: Calcium 10.6 MG/DL (8.5-10.1); Osmolality,Calculated 287.7 MOS/KG (273-304)
[2020-01-25] MEDS ORDERED: INSULIN REGULAR 100 UNIT/ML SUBCUT STA (10:25)
[2020-01-25 11:08] LABS: Bacteria,Urine Occasional /HPF (Few); Bilirubin,Urine Negative (Negative); Blood, Urine Negative (Negative); Glucose,Urine (UA) >=500 mg/dL (Negative); Ketones,Urine Negative (Negative); Mucus,Urine Occasional /LPF (Occasional); Nitrite,Urine Negative (Negative); Protein,Urine Negative; RBC,Urine 4 /HPF (0-4); Squamous Epithelial Cell,Urine Few /HPF (0-10); Urine Appearance CLEAR (Clear); Urine Color Straw (Yellow); Urine Specific Gravity 1.024 (1.001-1.035); Urine Urobilinogen < 2.0 EU/DL (0.2-1.0); WBC,Urine 3 /HPF (0-6)
[2020-01-25] MEDS ORDERED: LEVOFLOXACIN INJ 750 MG in PREMIX 1 EACH IV STA (11:28)
[2020-01-25] MEDS ORDERED: FUROSEMIDE 100 MG/10 ML VIAL IV STA (11:29)
[2020-01-25] MEDS ORDERED: FUROSEMIDE 40 MG/4 ML VIAL ONE (11:34)
[2020-01-25] MEDS ORDERED: SODIUM CHLORIDE 0.9% 1,000 ML IV STA (13:02)
[2020-01-25] MEDS ORDERED: INSULIN REGULAR 100 UNIT/ML IV STA (13:04)
[2020-01-25] MEDS ORDERED: GLUCAGON 1 MG VIAL IM PRN ×2 (13:07)
[2020-01-25] MEDS ORDERED: ONDANSETRON 4 MG/2 ML VIAL IV PRN (13:07)
[2020-01-25] MEDS ORDERED: DEXAMETHASONE 4 MG TABLET PO STA (13:07)
[2020-01-25] MEDS ORDERED: DEXTROSE 50% 25 GM/50 ML VIAL IV PRN ×2 (13:07)
[2020-01-25 14:08] LABS: ABG Base Excess 6.3 MMOL/L (-2.5-2.5); ABG HCO3 29.9 MMOL/L (20-26); ABG Oxygen Saturation 89.5 % (95-100); ABG PCO2 50.1 MM HG (35-48); ABG PH 7.415 (7.35-7.45); ABG PO2 57.1 MM HG (80-95); ABG TCO2 28.3 MMOL/L (23-27)
[2020-01-25 14:15] LABS: Alanine Aminotransferase 38 U/L (13-56); Albumin 3.8 G/DL (3.4-5.0); Alkaline Phosphatase 221 U/L (45-117); Aspartate Amino Transferase 17 U/L (0-37); Bilirubin,Direct < 0.050 MG/DL (0.0-0.20); Bilirubin,Indirect 0.4 MG/DL (0.0-1.0); Total Protein 8.6 G/DL (6.4-8.3)
[2020-01-25] MEDS: GABAPENTIN 300 MG CAPSULE PO SCH ×2 (16:01→20:24)
[2020-01-25] MEDS: ENOXAPARIN 40 MG/0.4 ML SYRINGE SUBCUT SCH (16:01)
[2020-01-25] MEDS: SODIUM CHLORIDE 0.9% 1,000 ML IV SCH (17:03)
[2020-01-25] MEDS: INSULIN REGULAR 100 UNIT/ML SUBCUT SCH ×2 (17:03→20:22)
[2020-01-25] MEDS: ALBUTEROL/IPRATROPIUM 3 ML NEB RESP TX SCH ×2 (19:17→23:21)
[2020-01-25] MEDS: BUDESONIDE 0.5 MG/2 ML NEB RESP TX SCH (19:17)
[2020-01-25] MEDS: metFORMIN 500 MG TABLET PO SCH (20:22)
[2020-01-25] MEDS ORDERED: PRAZOSIN 1 MG CAPSULE PO SCH (21:00)
[2020-01-25] MEDS ORDERED: INSULIN GLARGINE 100 UNIT/ML SUBCUT SCH (21:00)
[2020-01-25] MEDS ORDERED: QUEtiapine 25 MG TABLET PO SCH (21:00)
[2020-01-26] MEDS: ALBUTEROL/IPRATROPIUM 3 ML NEB RESP TX SCH ×4 (03:07→14:56)
[2020-01-26] MEDS: SODIUM CHLORIDE 0.9% 1,000 ML IV SCH ×2 (05:24→09:16)
[2020-01-26] MEDS: ENOXAPARIN 40 MG/0.4 ML SYRINGE SUBCUT SCH (05:24)
[2020-01-26 05:37] LABS: Basophils % 0.1 % (0.0-0.8); Hematocrit 38.8 VOL% (35.7-47.0); Hemoglobin 12.2 GM/DL (12.0-16.0); Immature Granulocytes % 0.6 %; Immature Granulocytes Absolute 0.06 #; Lymphocytes # 1.1 10*3/uL (1.4-4.0); Lymphocytes % 11.1 % (21.3-54.2); Mean Corpuscular HGB Conc 31.4 GM/DL (32-36); Mean Corpuscular Volume 83.4 FL (87-102); Mean Platelet Volume 10.2 FL (9.6-12.0); Monocytes % 1.2 % (1.7-12.7); Platelet Count 278 T/CUMM (130-400); Red Blood Count 4.65 MC/CUMM (3.8-5.5); Red Cell Distribution Width 13.5 % (9.3-17.3); White Blood Count 9.5 T/CUMM (4-12)
[2020-01-26 06:07] LABS: Bilirubin,Total 0.4 MG/DL (0.2-1.0); Osmolality,Calculated 285.4 MOS/KG (273-304); Total Protein 7.3 G/DL (6.4-8.3)
[2020-01-26] MEDS: BUDESONIDE 0.5 MG/2 ML NEB RESP TX SCH (07:20)
[2020-01-26] MEDS ORDERED: PANTOPRAZOLE 40 MG TABLET PO SCH (09:00)
[2020-01-26] MEDS ORDERED: ARIPiprazole 5 MG TABLET PO SCH (09:00)
[2020-01-26] MEDS ORDERED: predniSONE 20 MG TABLET PO SCH (09:00)
[2020-01-26] MEDS ORDERED: PARoxetine 20 MG TABLET PO SCH (09:00)
[2020-01-26] MEDS ORDERED: KETOROLAC 30 MG/1 ML VIAL IV ONE (09:00)
[2020-01-26] MEDS ORDERED: ATORVASTATIN 40 MG TABLET PO SCH (09:00)
[2020-01-26] MEDS ORDERED: DEXAMETHASONE 4 MG TABLET PO SCH (09:00)
[2020-01-26] MEDS: INSULIN REGULAR 100 UNIT/ML SUBCUT SCH ×2 (09:13→11:54)
[2020-01-26] MEDS: GABAPENTIN 300 MG CAPSULE PO SCH (09:14)
[2020-01-26] MEDS: metFORMIN 500 MG TABLET PO SCH (09:14)
[2020-01-26] MEDS ORDERED: LEVOFLOXACIN INJ 750 MG in PREMIX 1 EACH IV SCH (11:00)
[2020-01-26 12:08] VITALS: BP 123/80
[2020-01-27] MEDS ORDERED: ENOXAPARIN 40 MG/0.4 ML SYRINGE SUBCUT SCH (09:00)
== END 2020-01-26 15:20 | disposition home or self-care (01) | DRG 313 ==
LOC: N.ED 08:28 → N.EDINP 13:04 → SUATTDRO 13:04 → N.2E 14:09 → N.5E 18:10
PROVIDERS: ADMIT Internal Medicine; ATTEND Internal Medicine Geriatric Medicine

== ENCOUNTER 2020-02-04 21:43 | Observation (INO) ==
[2020-02-04 22:18] LABS: Bilirubin,Urine Negative (Negative); Blood, Urine Negative (Negative); Glucose,Urine (UA) >=500 mg/dL (Negative); Hyaline Casts,Urine 48 /LPF (0-3); Ketones,Urine Negative (Negative); Mucus,Urine Occasional /LPF (Occasional); Nitrite,Urine Negative (Negative); Protein,Urine 30 MG/DL; RBC,Urine 5 /HPF (0-4); Squamous Epithelial Cell,Urine Occasional /HPF (0-10); Urine Appearance Slightly Hazy (Clear); Urine Color Yellow (Yellow); Urine Specific Gravity 1.024 (1.001-1.035); WBC,Urine 13 /HPF (0-6)
[2020-02-04 22:21] LABS: Basophils # 0.1 10*3/uL (0.0-0.2); Basophils % 0.5 % (0.0-0.8); Eosinophils % 0.1 % (0.00-10.9); Hematocrit 43.4 VOL% (35.7-47.0); Hemoglobin 14.5 GM/DL (12.0-16.0); Immature Granulocytes % 0.9 %; Immature Granulocytes Absolute 0.17 #; Lymphocytes # 5.6 10*3/uL (1.4-4.0); Lymphocytes % 29.8 % (21.3-54.2); Mean Corpuscular HGB Conc 33.4 GM/DL (32-36); Mean Corpuscular Volume 78.9 FL (87-102); Mean Platelet Volume 10.1 FL (9.6-12.0); Monocytes % 6.1 % (1.7-12.7); Neutrophils % 62.6 % (38.7-73.9); Platelet Count 405 T/CUMM (130-400); White Blood Count 18.9 T/CUMM (4-12)
[2020-02-04 22:27] LABS: PT Patient Result 10.3 SECS (9.8-11.9); Partial Thromboplastin Time 26.8 SECS (23.9-33.8)
[2020-02-04] MEDS ORDERED: KETOROLAC 30 MG/1 ML VIAL IV STA (22:29)
[2020-02-04] MEDS ORDERED: ONDANSETRON 4 MG/2 ML VIAL IV ONE (22:29)
[2020-02-04 22:32] LABS: Bilirubin,Total 0.4 MG/DL (0.2-1.0); Calcium 10.2 MG/DL (8.5-10.1); Osmolality,Calculated 272.4 MOS/KG (273-304)
[2020-02-04 23:14] LABS: Band Neutrophils 1 % (0-10); Eosinophils 1 % (0-10); Lymphocytes 29 % (20-55); Microcytosis Slight; Platelet Estimate Increased; Segmented Neutrophils 64 % (50-85); Total Cells Counted 100
[2020-02-04] MEDS ORDERED: cefTRIAXone 1,000 MG in SODIUM CHLORIDE 0.9% 100 ML IV STA (23:56)
[2020-02-05] MEDS ORDERED: GLUCAGON 1 MG VIAL IM PRN (04:05)
[2020-02-05] MEDS ORDERED: ONDANSETRON 4 MG/2 ML VIAL IV PRN (04:05)
[2020-02-05] MEDS ORDERED: DEXTROSE 50% 25 GM/50 ML VIAL IV PRN (04:05)
[2020-02-05] MEDS: hydrALAZINE 20 MG/1 ML VIAL IV PRN ×2 (04:39→08:30)
[2020-02-05] MEDS: SODIUM CHLORIDE 0.9% 1,000 ML IV SCH ×3 (04:39→23:59)
[2020-02-05] MEDS: ENOXAPARIN 40 MG/0.4 ML SYRINGE SUBCUT SCH (06:00)
[2020-02-05] MEDS: INSULIN REGULAR 100 UNIT/ML SUBCUT SCH ×4 (07:30→21:29)
[2020-02-05 07:49] LABS: Basophils % 0.2 % (0.0-0.8); Hematocrit 41.8 VOL% (35.7-47.0); Hemoglobin 13.8 GM/DL (12.0-16.0); Immature Granulocytes % 0.8 %; Immature Granulocytes Absolute 0.14 #; Lymphocytes # 1.3 10*3/uL (1.4-4.0); Mean Corpuscular Volume 79.6 FL (87-102); Mean Platelet Volume 9.7 FL (9.6-12.0); Monocytes % 1.4 % (1.7-12.7); Neutrophils % 90.6 % (38.7-73.9); Platelet Count 338 T/CUMM (130-400); Red Blood Count 5.25 MC/CUMM (3.8-5.5); Red Cell Distribution Width 13.2 % (9.3-17.3)
[2020-02-05 08:13] LABS: Alanine Aminotransferase 27 U/L (13-56); Albumin 3.7 G/DL (3.4-5.0); Alkaline Phosphatase 152 U/L (45-117); Aspartate Amino Transferase 25 U/L (0-37); Bilirubin,Total < 0.39 MG/DL (0.2-1.0); Blood Urea Nitrogen 28 MG/DL (7-18); Calcium 9.5 MG/DL (8.5-10.1); Estimated Glom Filtration Rate 57 ML/MIN; Glucose 318 MG/DL (74-106); Osmolality,Calculated 279.7 MOS/KG (273-304); Total Protein 8.2 G/DL (6.4-8.3)
[2020-02-05 08:15] LABS: Lymphocytes 8 % (20-55); Platelet Estimate Adequate; Segmented Neutrophils 89 % (50-85); Total Cells Counted 100
[2020-02-05 08:16] LABS: Hypochromasia 1+; Microcytosis 1+
[2020-02-05] MEDS: PANTOPRAZOLE 40 MG TABLET PO SCH (12:55)
[2020-02-05] MEDS: GABAPENTIN 300 MG CAPSULE PO SCH ×2 (17:25→21:28)
[2020-02-05] MEDS: PARoxetine 20 MG TABLET PO SCH (17:31)
[2020-02-05] MEDS: ATORVASTATIN 40 MG TABLET PO SCH (17:31)
[2020-02-05] MEDS: ARIPiprazole 5 MG TABLET PO SCH (17:32)
[2020-02-05] MEDS ORDERED: QUETIAPINE 50 MG PO SCH (21:00)
[2020-02-05] MEDS: cefTRIAXone 1,000 MG in SYRINGE 1 EACH IV SCH (21:29)
[2020-02-05] MEDS: PRAZOSIN 1 MG CAPSULE PO SCH (21:29)
[2020-02-06] MEDS: ENOXAPARIN 40 MG/0.4 ML SYRINGE SUBCUT SCH (05:10)
[2020-02-06] MEDS: PARoxetine 20 MG TABLET PO SCH (08:55)
[2020-02-06] MEDS: TRIAMTERENE/HCTZ 37.5-25 MG TABLET PO SCH (08:55)
[2020-02-06] MEDS: GABAPENTIN 300 MG CAPSULE PO SCH ×3 (08:55→21:48)
[2020-02-06] MEDS: ARIPiprazole 5 MG TABLET PO SCH (08:56)
[2020-02-06] MEDS: PANTOPRAZOLE 40 MG TABLET PO SCH (08:56)
[2020-02-06] MEDS: ATORVASTATIN 40 MG TABLET PO SCH (08:56)
[2020-02-06] MEDS: INSULIN REGULAR 100 UNIT/ML SUBCUT SCH ×2 (08:56→10:59)
[2020-02-06] MEDS ORDERED: ACETAMINOPHEN 325 MG/10.15 ML UDCUP PO PRN (10:19)
[2020-02-06] MEDS ORDERED: DEXTROSE 50% 25 GM/50 ML VIAL IV PRN (13:08)
[2020-02-06] MEDS ORDERED: GLUCAGON 1 MG VIAL IM PRN (13:08)
[2020-02-06] MEDS: metFORMIN 500 MG TABLET PO SCH (16:50)
[2020-02-06] MEDS: SODIUM CHLORIDE 0.9% 1,000 ML IV SCH (16:51)
[2020-02-06] MEDS: INSULIN LISPRO 100 UNIT/ML SUBCUT SCH ×2 (16:52→17:02)
[2020-02-06] MEDS ORDERED: INSULIN GLARGINE 100 UNIT/ML SUBCUT SCH (21:00)
[2020-02-06] MEDS: cefTRIAXone 1,000 MG in SYRINGE 1 EACH IV SCH (21:35)
[2020-02-06] MEDS: DICYCLOMINE 10 MG CAPSULE PO SCH (21:49)
[2020-02-06] MEDS: PRAZOSIN 1 MG CAPSULE PO SCH (21:53)
[2020-02-07] MEDS: INSULIN LISPRO 100 UNIT/ML SUBCUT SCH ×6 (00:51→12:14)
[2020-02-07] MEDS: SODIUM CHLORIDE 0.9% 1,000 ML IV SCH (01:01)
[2020-02-07 05:56] LABS: Basophils # 0.1 10*3/uL (0.0-0.2); Basophils % 0.5 % (0.0-0.8); Eosinophils % 0.1 % (0.00-10.9); Hematocrit 36.5 VOL% (35.7-47.0); Hemoglobin 11.6 GM/DL (12.0-16.0); Immature Granulocytes % 0.9 %; Immature Granulocytes Absolute 0.09 #; Lymphocytes % 29.1 % (21.3-54.2); Mean Corpuscular HGB Conc 31.8 GM/DL (32-36); Mean Corpuscular Volume 83.1 FL (87-102); Mean Platelet Volume 9.8 FL (9.6-12.0); Monocytes % 6.8 % (1.7-12.7); Neutrophils % 62.6 % (38.7-73.9); Platelet Count 273 T/CUMM (130-400); Red Blood Count 4.39 MC/CUMM (3.8-5.5); Red Cell Distribution Width 13.2 % (9.3-17.3); White Blood Count 10.3 T/CUMM (4-12)
[2020-02-07 06:12] LABS: Calcium 8.5 MG/DL (8.5-10.1); Osmolality,Calculated 273.2 MOS/KG (273-304)
[2020-02-07 06:13] LABS: Albumin 2.7 G/DL (3.4-5.0); Bilirubin,Total 1.5 MG/DL (0.2-1.0); Calcium 8.5 MG/DL (8.5-10.1); Total Protein 6.4 G/DL (6.4-8.3)
[2020-02-07] MEDS: ENOXAPARIN 40 MG/0.4 ML SYRINGE SUBCUT SCH (06:39)
[2020-02-07] MEDS ORDERED: POTASSIUM CHLORIDE 20 MEQ TABLET PO ONE (07:54)
[2020-02-07] MEDS ORDERED: ASPIRIN 325 MG TABLET PO SCH (09:00)
[2020-02-07] MEDS ORDERED: ASPIRIN EC 81 MG TABLET PO SCH (09:00)
[2020-02-07] MEDS ORDERED: MAGNESIUM HYDROXIDE SUSP 30 ML UDCUP PO PRN (09:27)
[2020-02-07] MEDS: GABAPENTIN 300 MG CAPSULE PO SCH (09:35)
[2020-02-07] MEDS: PANTOPRAZOLE 40 MG TABLET PO SCH (09:35)
[2020-02-07] MEDS: ATORVASTATIN 40 MG TABLET PO SCH (09:35)
[2020-02-07] MEDS: metFORMIN 500 MG TABLET PO SCH (09:36)
[2020-02-07] MEDS: PARoxetine 20 MG TABLET PO SCH (09:36)
[2020-02-07] MEDS: TRIAMTERENE/HCTZ 37.5-25 MG TABLET PO SCH (09:36)
[2020-02-07] MEDS: ARIPiprazole 5 MG TABLET PO SCH (09:36)
[2020-02-07] MEDS: DICYCLOMINE 10 MG CAPSULE PO SCH (11:59)
[2020-02-07 12:07] VITALS: BP 125/78
[2020-02-08] MEDS ORDERED: POTASSIUM CHLORIDE 20 MEQ TABLET PO SCH (09:00)
== END 2020-02-07 13:00 | disposition home or self-care (01) ==
LOC: EDUNIT# → N.EDINP 21:43 → N.ED 21:43 → N.3E 02-05 14:18
PROVIDERS: ADMIT Internal Medicine; ATTEND Internal Medicine

== ENCOUNTER 2020-08-17 13:44 | Observation (INO) ==
[2020-08-17] MEDS ORDERED: ONDANSETRON 4 MG/2 ML VIAL IV STA (14:30)
[2020-08-17] MEDS ORDERED: METOCLOPRAMIDE 10 MG/2 ML VIAL IV STA (14:30)
[2020-08-17] MEDS ORDERED: PANTOPRAZOLE 40 MG VIAL IV STA (14:30)
[2020-08-17 15:14] LABS: Basophils % 0.2 % (0.0-0.8); Hematocrit 43.3 VOL% (35.7-47.0); Hemoglobin 13.6 GM/DL (12.0-16.0); Immature Granulocytes % 1.1 %; Immature Granulocytes Absolute 0.15 #; Lymphocytes # 0.9 10*3/uL (1.4-4.0); Lymphocytes % 6.8 % (21.3-54.2); Mean Corpuscular HGB Conc 31.4 GM/DL (32-36); Mean Corpuscular Volume 81.9 FL (87-102); Monocytes % 1.6 % (1.7-12.7); Neutrophils % 90.3 % (38.7-73.9); Platelet Count 271 T/CUMM (130-400); Red Blood Count 5.29 MC/CUMM (3.8-5.5); Red Cell Distribution Width 14.2 % (9.3-17.3); White Blood Count 13.2 T/CUMM (4-12)
[2020-08-17 15:34] LABS: Bacteria,Urine Moderate /HPF (Few); Bilirubin,Urine Negative (Negative); Blood, Urine Small mg/dL (Negative); Glucose,Urine (UA) >=500 mg/dL (Negative); Ketones,Urine 20 mg/dL (Negative); Nitrite,Urine Negative (Negative); Protein,Urine Negative; RBC,Urine 4 /HPF (0-4); Squamous Epithelial Cell,Urine Occasional /HPF (0-10); Urine Appearance CLOUDY (Clear); Urine Color Yellow (Yellow); Urine Specific Gravity 1.041 (1.001-1.035); Urine Urobilinogen < 2.0 EU/DL (0.2-1.0)
[2020-08-17 15:34] LABS: Alanine Aminotransferase 276 U/L (13-56); Albumin 3.1 G/DL (3.4-5.0); Alkaline Phosphatase 297 U/L (45-117); Aspartate Amino Transferase 249 U/L (0-37); Blood Urea Nitrogen 27 MG/DL (7-18); Calcium 9.5 MG/DL (8.5-10.1); Carbon Dioxide 28 MMOL/L (21-32); Estimated Glom Filtration Rate 87 ML/MIN; Glucose 297 MG/DL (74-106); Osmolality,Calculated 277.7 MOS/KG (273-304); Potassium 4.3 MMOL/L (3.5-5.1); Sodium 131 MMOL/L (136-145); Total Protein 7.2 G/DL (6.4-8.2)
[2020-08-17] MEDS ORDERED: cefTRIAXone 1,000 MG in SODIUM CHLORIDE 0.9% 100 ML IV STA (15:59)
[2020-08-17] MEDS ORDERED: MORPHINE 4 MG/1 ML VIAL IV STA (16:07)
[2020-08-17] MEDS ORDERED: DEXTROSE 50% 25 GM/50 ML VIAL IV PRN (16:52)
[2020-08-17] MEDS ORDERED: hydrALAZINE 20 MG/1 ML VIAL IV PRN (16:52)
[2020-08-17] MEDS ORDERED: GLUCAGON 1 MG VIAL IM PRN (16:52)
[2020-08-17] MEDS ORDERED: ONDANSETRON 4 MG/2 ML VIAL IV PRN (16:52)
[2020-08-17] MEDS ORDERED: cefTRIAXone 1,000 MG VIAL ONE (17:02)
[2020-08-17 17:36] LABS: Risk Ratio 4.36; Thyroid Stimulating Hormone 1.6 uIU/ml (0.358-3.74)
[2020-08-17 18:14] LABS: Hepatitis B Core IgM Quant 0.08 Index; Hepatitis B Surface Ag Quant 0.29 Index; Hepatitis B Surface Ag Result Non-Reactive (NonReactive); Hepatitis C Virus Ab Quant 0.07 Index; Hepatitis C Virus Ab Result Non-Reactive (NonReactive)
[2020-08-17] MEDS: SODIUM CHLORIDE 0.9% 1,000 ML IV SCH (18:43)
[2020-08-17] MEDS: LOSARTAN 25 MG TABLET PO SCH (18:49)
[2020-08-17] MEDS: METOCLOPRAMIDE 10 MG/2 ML VIAL IV SCH (18:49)
[2020-08-17] MEDS ORDERED: ENOXAPARIN 40 MG/0.4 ML SYRINGE SUBCUT SCH (21:00)
[2020-08-17] MEDS: DICYCLOMINE 20 MG TABLET PO SCH (22:04)
[2020-08-17] MEDS: DOCUSATE SODIUM 100 MG CAPSULE PO SCH (22:04)
[2020-08-17] MEDS: INSULIN REGULAR 100 UNIT/ML SUBCUT SCH (22:05)
[2020-08-18] MEDS: METOCLOPRAMIDE 10 MG/2 ML VIAL IV SCH ×3 (00:04→12:56)
[2020-08-18] MEDS: SODIUM CHLORIDE 0.9% 1,000 ML IV SCH (03:12)
[2020-08-18 05:14] LABS: Basophils % 0.2 % (0.0-0.8); Hematocrit 39.4 VOL% (35.7-47.0); Hemoglobin 12.2 GM/DL (12.0-16.0); Immature Granulocytes % 0.7 %; Immature Granulocytes Absolute 0.07 #; Lymphocytes # 2.2 10*3/uL (1.4-4.0); Lymphocytes % 20.6 % (21.3-54.2); Mean Corpuscular Volume 82.1 FL (87-102); Mean Platelet Volume 10.3 FL (9.6-12.0); Monocytes % 7.9 % (1.7-12.7); Neutrophils % 70.6 % (38.7-73.9); Platelet Count 251 T/CUMM (130-400); Red Cell Distribution Width 14.2 % (9.3-17.3); White Blood Count 10.6 T/CUMM (4-12)
[2020-08-18 05:40] LABS: Albumin 2.5 G/DL (3.4-5.0); Bilirubin,Total 0.6 MG/DL (0.2-1.0); Calcium 8.8 MG/DL (8.5-10.1); Osmolality,Calculated 285.7 MOS/KG (273-304); Potassium 3.8 MMOL/L (3.5-5.1); Total Protein 5.9 G/DL (6.4-8.2)
[2020-08-18] MEDS: DOCUSATE SODIUM 100 MG CAPSULE PO SCH (08:29)
[2020-08-18] MEDS: INSULIN REGULAR 100 UNIT/ML SUBCUT SCH ×2 (08:29→12:45)
[2020-08-18] MEDS: LOSARTAN 25 MG TABLET PO SCH (08:29)
[2020-08-18] MEDS: DICYCLOMINE 20 MG TABLET PO SCH (09:00)
[2020-08-18] MEDS ORDERED: cefTRIAXone 1,000 MG in SODIUM CHLORIDE 0.9% 100 ML IV SCH (09:00)
[2020-08-18 11:48] VITALS: BP 122/83
== END 2020-08-18 14:30 | disposition home or self-care (01) ==
LOC: EDBD → EDUNIT# → N.EDINP 13:44 → N.ED 13:44 → N.5E 18:30
PROVIDERS: ADMIT Internal Medicine; ATTEND Internal Medicine

== ENCOUNTER 2020-09-14 16:54 | Inpatient (IN) ==
[2020-09-14] MEDS ORDERED: MORPHINE 4 MG/1 ML VIAL IV ONE (17:16)
[2020-09-14] MEDS ORDERED: ONDANSETRON 4 MG/2 ML VIAL IV STA (17:16)
[2020-09-14] MEDS ORDERED: ONDANSETRON 4 MG/2 ML VIAL ONE (17:30)
[2020-09-14 17:35] LABS: Basophils # 0.1 10*3/uL (0.0-0.2); Basophils % 0.3 % (0.0-0.8); Hematocrit 44.7 VOL% (35.7-47.0); Immature Granulocytes % 0.8 %; Immature Granulocytes Absolute 0.18 #; Lymphocytes # 5.4 10*3/uL (1.4-4.0); Lymphocytes % 23.5 % (21.3-54.2); Mean Corpuscular HGB Conc 31.3 GM/DL (32-36); Mean Corpuscular Volume 80.5 FL (87-102); Mean Platelet Volume 9.3 FL (9.6-12.0); Monocytes % 5.3 % (1.7-12.7); Neutrophils % 70.1 % (38.7-73.9); Platelet Count 436 T/CUMM (130-400); Red Blood Count 5.55 MC/CUMM (3.8-5.5)
[2020-09-14 17:54] LABS: Albumin 3.6 G/DL (3.4-5.0); Bilirubin,Total 0.4 MG/DL (0.2-1.0); Calcium 10.5 MG/DL (8.5-10.1); Osmolality,Calculated 274.4 MOS/KG (273-304); Potassium 3.3 MMOL/L (3.5-5.1); Total Protein 8.5 G/DL (6.4-8.2)
[2020-09-14 18:07] LABS: Bacteria,Urine Occasional /HPF (Few); Bilirubin,Urine Negative (Negative); Blood, Urine Negative (Negative); Glucose,Urine (UA) Negative (Negative); Hyaline Casts,Urine 1 /LPF (0-3); Ketones,Urine Negative (Negative); Nitrite,Urine Negative (Negative); Protein,Urine 30 MG/DL; RBC,Urine 2 /HPF (0-4); Squamous Epithelial Cell,Urine Occasional /HPF (0-10); Urine Appearance CLEAR (Clear); Urine Color Yellow (Yellow); Urine Specific Gravity 1.016 (1.001-1.035); Urine Urobilinogen < 2.0 EU/DL (0.2-1.0)
[2020-09-14] MEDS ORDERED: METOCLOPRAMIDE 10 MG/2 ML VIAL IV STA (18:08)
[2020-09-14] MEDS ORDERED: METOCLOPRAMIDE 10 MG/2 ML VIAL ONE (18:09)
[2020-09-14] MEDS ORDERED: DICYCLOMINE 20 MG/2 ML AMP IM ONE ×2 (18:09)
[2020-09-14] MEDS ORDERED: SODIUM CHLORIDE 0.9% 1,000 ML IV STA (18:28)
[2020-09-14 18:38] LABS: Lymphocytes 29 % (20-55); Segmented Neutrophils 70 % (50-85); Total Cells Counted 100
[2020-09-14 18:39] LABS: Hypochromasia Slight; Microcytosis Slight; Platelet Estimate Increased
[2020-09-14] MEDS ORDERED: KETOROLAC 30 MG/1 ML VIAL IV STA (19:12)
[2020-09-14] MEDS ORDERED: KETOROLAC 30 MG/1 ML VIAL ONE (19:13)
[2020-09-14] MEDS ORDERED: ZALEPLON 5 MG CAPSULE PO PRN (19:42)
[2020-09-14] MEDS ORDERED: GLUCAGON 1 MG VIAL IM PRN (19:42)
[2020-09-14] MEDS ORDERED: ONDANSETRON 4 MG/2 ML VIAL IV PRN (19:42)
[2020-09-14] MEDS ORDERED: LACTULOSE 20 GM/30 ML UDCUP PO PRN (19:42)
[2020-09-14] MEDS ORDERED: DEXTROSE 50% 25 GM/50 ML VIAL IV PRN (19:42)
[2020-09-14] MEDS ORDERED: ENOXAPARIN 40 MG/0.4 ML SYRINGE SUBCUT SCH (20:00)
[2020-09-14] MEDS ORDERED: BUTORPHANOL 2 MG/ML VIAL IV PRN (20:09)
[2020-09-14] MEDS ORDERED: POTASSIUM CHLORIDE 20 MEQ TABLET PO STA (20:14)
[2020-09-14] MEDS ORDERED: METOCLOPRAMIDE 10 MG/2 ML VIAL IV SCH (20:30)
[2020-09-14] MEDS: SODIUM CHLORIDE 0.9% 1,000 ML IV SCH (20:45)
[2020-09-14] MEDS: LACTULOSE 20 GM/30 ML UDCUP PO SCH (21:22)
[2020-09-14] MEDS: PIPERACILLIN/TAZOBACTAM 3,375 MG in SODIUM CHLORIDE 0.9% 100 ML IV SCH (21:29)
[2020-09-14] MEDS: INSULIN REGULAR 100 UNIT/ML SUBCUT SCH (22:01)
[2020-09-15] MEDS ORDERED: METOCLOPRAMIDE 10 MG/2 ML VIAL IV SCH (02:00)
[2020-09-15] MEDS: LACTULOSE 20 GM/30 ML UDCUP PO SCH ×4 (02:30→13:13)
[2020-09-15] MEDS: PIPERACILLIN/TAZOBACTAM 3,375 MG in SODIUM CHLORIDE 0.9% 100 ML IV SCH ×2 (06:25→13:27)
[2020-09-15 06:29] LABS: Basophils % 0.2 % (0.0-0.8); Hematocrit 37.7 VOL% (35.7-47.0); Immature Granulocytes % 0.5 %; Lymphocytes # 1.6 10*3/uL (1.4-4.0); Lymphocytes % 8.4 % (21.3-54.2); Mean Corpuscular HGB Conc 31.8 GM/DL (32-36); Mean Corpuscular Volume 81.1 FL (87-102); Mean Platelet Volume 9.6 FL (9.6-12.0); Monocytes % 4.3 % (1.7-12.7); Neutrophils % 86.6 % (38.7-73.9); Platelet Count 362 T/CUMM (130-400); Red Blood Count 4.65 MC/CUMM (3.8-5.5); Red Cell Distribution Width 14.2 % (9.3-17.3); White Blood Count 18.7 T/CUMM (4-12)
[2020-09-15 06:54] LABS: Albumin 2.8 G/DL (3.4-5.0); Bilirubin,Total 0.8 MG/DL (0.2-1.0); Calcium 8.5 MG/DL (8.5-10.1); Osmolality,Calculated 291.1 MOS/KG (273-304); Potassium 4.9 MMOL/L (3.5-5.1); Total Protein 6.8 G/DL (6.4-8.2)
[2020-09-15] MEDS ORDERED: lisinopriL 10 MG TABLET PO SCH (09:00)
[2020-09-15] MEDS ORDERED: PANTOPRAZOLE 40 MG TABLET PO SCH (09:00)
[2020-09-15] MEDS: METOCLOPRAMIDE 10 MG/2 ML VIAL IV SCH ×2 (09:06→13:28)
[2020-09-15] MEDS: INSULIN REGULAR 100 UNIT/ML SUBCUT SCH ×2 (09:07→13:13)
[2020-09-15] MEDS: SODIUM CHLORIDE 0.9% 1,000 ML IV SCH (09:39)
[2020-09-15 12:10] VITALS: BP 97/56
== END 2020-09-15 15:02 | disposition home or self-care (01) | DRG 392 ==
LOC: EDUNIT# → EDBD → N.ED 16:54 → N.EDINP 19:43 → N.5E 09-15 00:07
PROVIDERS: ADMIT Internal Medicine; ATTEND Internal Medicine